=== PATIENT | male | born 1940 | race Caucasian/White ===

== ENCOUNTER → 2017-12-02 | Outpatient (CLI) | payer MEDICARE ==
[2017-12-02 13:22] LABS: CREATININE 0.98 mg/dL (0.70-1.30)
== END | disposition home or self-care (01) ==
LOC: LAB 12:51 → MRI 13:00 → LAB 13:00
PROVIDERS: Radiology Diagnostic Radiology
DX: G93.89 Other specified disorders of brain (principal); R41.82 Altered mental status, unspecified

== ENCOUNTER → 2018-06-29 | Outpatient (CLI) | payer MEDICARE | END | disposition home or self-care (01) | LOC: MRI 15:00 | DX: F03.90 Unspecified dementia, unspecified severity, without behavioral disturbance, psychotic disturbance, mood disturbance, and anxiety (principal) ==

== ENCOUNTER 2021-08-06 12:03 | Emergency (ER) | payer MEDICARE ==
[~2021-08-06] VITALS: Wt 77.1 kg
[2021-08-06 13:15] LABS: BASO % 0.4 % (0.0-1.0); EOS % 0.1 % (1.0-4.0); HEMATOCRIT 36.6 % (42.0-52.0); LYMPH # 1.8 10*3/uL (1.3-4.4); LYMPH % 17.7 % (27.0-41.0); MEAN CELL VOLUME 94.6 fl (80.0-94.0); MEAN CORPUSCULAR HGB 30.7 pg (27.0-31.0); MEAN CORPUSCULAR HGB CONC 32.5 g/dl (33.0-37.0); MEAN PLATELET VOLUME 10.3 fl (9.6-12.3); MONO # 0.9 10*3/uL (0.1-1.0); MONO % 8.9 % (3.0-9.0); NEUT # 7.5 10*3/uL (2.3-7.9); NEUT % 72.7 % (47.0-73.0); PLATELET COUNT AUTOMATED 186 10*3/uL (130-400); RED BLOOD COUNT 3.87 10*6/uL (4.50-5.90); RED CELL DISTRI WIDTH 13.6 % (0-14.5); WHITE BLOOD COUNT 10.3 10*3/uL (4.8-10.8)
[2021-08-06 13:36] LABS: ALKALINE PHOSPHATASE 89 U/L (45-117); BUN 32 mg/dl (7-24); CHLORIDE 106 mmol/L (98-107); CREATININE 1.36 mg/dL (0.70-1.30); POTASSIUM 4.3 mmol/L (3.5-5.1); SGOT/AST 24 IU/L (3-35); SGPT/ALT 18 U/L (12-78); SODIUM 142 mmol/L (136-145); TOTAL PROTEIN 6.3 gm/dL (6.4-8.2)
[2021-08-06] MEDS ORDERED: SEPTDS PO (16:34)
[2021-08-06] MEDS ORDERED: CEPHALEXIN500 M1 PO (16:34)
== END 2021-08-06 16:35 | disposition home or self-care (01) ==
LOC: ED 12:03
PROVIDERS: Physician Assistant
DX: S61.402A Unspecified open wound of left hand, initial encounter (principal); X58.XXXA Exposure to other specified factors, initial encounter; Y93.89 Activity, other specified; Y92.89 Other specified places as the place of occurrence of the external cause; Y99.8 Other external cause status

== ENCOUNTER → 2021-08-13 | Outpatient (CLI) | payer MEDICARE ==
[~2021-08-13] MED LIST: CEPHALEXIN500 M1 PO; SEPTDS PO
== END | disposition home or self-care (01) ==
LOC: WOUNDCARE 01:30
PROVIDERS: ATTEND Nurse Practitioner Family
DX: S61.402A Unspecified open wound of left hand, initial encounter (principal); F03.90 Unspecified dementia, unspecified severity, without behavioral disturbance, psychotic disturbance, mood disturbance, and anxiety; Z98.890 Other specified postprocedural states; Z79.899 Other long term (current) drug therapy; X58.XXXA Exposure to other specified factors, initial encounter; Y93.89 Activity, other specified; Y92.89 Other specified places as the place of occurrence of the external cause; Y99.8 Other external cause status

== ENCOUNTER → 2021-08-20 | Outpatient (CLI) | payer MEDICARE | END | disposition home or self-care (01) | LOC: WOUNDCARE 00:38 | PROVIDERS: ATTEND Nurse Practitioner Family | DX: S61.402D Unspecified open wound of left hand, subsequent encounter (principal); F03.90 Unspecified dementia, unspecified severity, without behavioral disturbance, psychotic disturbance, mood disturbance, and anxiety; X58.XXXD Exposure to other specified factors, subsequent encounter ==

== ENCOUNTER → 2021-08-27 | Outpatient (CLI) | payer MEDICARE | END | disposition home or self-care (01) | LOC: WOUNDCARE 02:54 | PROVIDERS: ATTEND Nurse Practitioner Family | DX: S61.402D Unspecified open wound of left hand, subsequent encounter (principal); F03.90 Unspecified dementia, unspecified severity, without behavioral disturbance, psychotic disturbance, mood disturbance, and anxiety; X58.XXXD Exposure to other specified factors, subsequent encounter ==

== ENCOUNTER → 2021-09-03 | Outpatient (CLI) | payer MEDICARE | END | disposition home or self-care (01) | LOC: WOUNDCARE 01:21 | PROVIDERS: ATTEND Nurse Practitioner Family | DX: S61.402D Unspecified open wound of left hand, subsequent encounter (principal); F03.90 Unspecified dementia, unspecified severity, without behavioral disturbance, psychotic disturbance, mood disturbance, and anxiety; X58.XXXD Exposure to other specified factors, subsequent encounter ==

== ENCOUNTER → 2021-09-10 | Outpatient (CLI) | payer MEDICARE | END | disposition home or self-care (01) | LOC: WOUNDCARE 00:59 | PROVIDERS: ATTEND Nurse Practitioner Family | DX: S61.402D Unspecified open wound of left hand, subsequent encounter (principal); F03.90 Unspecified dementia, unspecified severity, without behavioral disturbance, psychotic disturbance, mood disturbance, and anxiety; X58.XXXD Exposure to other specified factors, subsequent encounter ==

== ENCOUNTER → 2021-09-16 | Outpatient (CLI) | payer MEDICARE | END | disposition home or self-care (01) | LOC: WOUNDCARE 03:00 | PROVIDERS: ATTEND Nurse Practitioner Family | DX: S61.402D Unspecified open wound of left hand, subsequent encounter (principal); F03.90 Unspecified dementia, unspecified severity, without behavioral disturbance, psychotic disturbance, mood disturbance, and anxiety; X58.XXXD Exposure to other specified factors, subsequent encounter ==

== ENCOUNTER → 2021-10-01 | Outpatient (CLI) | payer MEDICARE | LOC: WOUNDCARE 02:22 | PROVIDERS: ATTEND Nurse Practitioner Family | DX: Z53.21 Procedure and treatment not carried out due to patient leaving prior to being seen by health care provider (principal) ==

== ENCOUNTER → 2021-10-02 | Outpatient (CLI) | payer MEDICARE | END | disposition home or self-care (01) | LOC: WOUNDCARE 00:25 | PROVIDERS: ATTEND Nurse Practitioner Family | DX: S61.402D Unspecified open wound of left hand, subsequent encounter (principal); F03.90 Unspecified dementia, unspecified severity, without behavioral disturbance, psychotic disturbance, mood disturbance, and anxiety; X58.XXXD Exposure to other specified factors, subsequent encounter ==

== ENCOUNTER → 2021-10-22 | Outpatient (CLI) | payer MEDICARE | END | disposition home or self-care (01) | LOC: WOUNDCARE 02:13 | PROVIDERS: ATTEND Nurse Practitioner Family | DX: S61.402D Unspecified open wound of left hand, subsequent encounter (principal); F03.90 Unspecified dementia, unspecified severity, without behavioral disturbance, psychotic disturbance, mood disturbance, and anxiety; X58.XXXD Exposure to other specified factors, subsequent encounter ==

== ENCOUNTER → 2023-03-22 | Outpatient (CLI) | payer MEDICARE ==
[2023-03-22 10:18] LABS: BASO % 0.3 % (0.0-1.0); EOS # 0.1 10*3/uL (0.0-0.4); EOS % 2.4 % (1.0-4.0); HEMATOCRIT 49.6 % (42.0-52.0); LYMPH # 2.1 10*3/uL (1.3-4.4); LYMPH % 35.9 % (27.0-41.0); MEAN CELL VOLUME 96.9 fl (80.0-94.0); MEAN CORPUSCULAR HGB 31.4 pg (27.0-31.0); MEAN CORPUSCULAR HGB CONC 32.5 g/dl (33.0-37.0); MEAN PLATELET VOLUME 10.4 fl (9.6-12.3); MONO # 0.6 10*3/uL (0.1-1.0); NEUT % 51.4 % (47.0-73.0); PLATELET COUNT AUTOMATED 200 10*3/uL (130-400); RED BLOOD COUNT 5.12 10*6/uL (4.50-5.90); RED CELL DISTRI WIDTH 12.9 % (0-14.5); WHITE BLOOD COUNT 5.8 10*3/uL (4.8-10.8)
[2023-03-22 10:40] LABS: ALKALINE PHOSPHATASE 108 U/L (46-116); BUN 9 mg/dl (9-23); CHLORIDE 104 mmol/L (98-107); SGPT/ALT 16 U/L (5-49)
[2023-03-22 14:48] LABS: BILIRUBIN Negative (Negative); BLOOD Negative (Negative); CLARITY Clear (Clear); COLOR Yellow (Yellow); GLUCOSE Negative (Negative); KETONE Negative (Negative); LEUKO ESTERASE Negative (Negative); NITRITE Negative (Negative); PH 5.5 (4.5-8.0)
[2023-03-22 15:03] LABS: BACTERIA 1+; MUCOUS 3+
== END | disposition home or self-care (01) ==
LOC: LAB 09:44
PROVIDERS: ATTEND Internal Medicine Nephrology
DX: N18.30 Chronic kidney disease, stage 3 unspecified (principal)

== ENCOUNTER 2024-06-05 15:31 | Emergency (ER) | payer MEDICARE ==
[~2024-06-05] VITALS: Ht 177.8 cm; Wt 78.0 kg
[2024-06-05 16:02] LABS: BASO % 0.3 % (0.0-1.0); EOS # 0.1 10*3/uL (0.0-0.4); EOS % 1.6 % (1.0-4.0); HEMATOCRIT 43.7 % (42.0-52.0); MEAN CELL VOLUME 93.6 fl (80.0-94.0); MEAN CORPUSCULAR HGB 31.3 pg (27.0-31.0); MEAN CORPUSCULAR HGB CONC 33.4 g/dl (33.0-37.0); MEAN PLATELET VOLUME 9.7 fl (9.6-12.3); MONO # 0.7 10*3/uL (0.1-1.0); NEUT # 4.9 10*3/uL (2.3-7.9); NEUT % 66.6 % (47.0-73.0); PLATELET COUNT AUTOMATED 210 10*3/uL (130-400); RED BLOOD COUNT 4.67 10*6/uL (4.50-5.90); WHITE BLOOD COUNT 7.3 10*3/uL (4.8-10.8)
[2024-06-05 16:21] LABS: BUN 13 mg/dl (9-23); CHLORIDE 104 mmol/L (98-107); POTASSIUM 4.1 mmol/L (3.4-5.1)
[2024-06-05 16:25] LABS: ETHYL ALCOHOL < 3.0 mg/dl (<3)
[2024-06-05] MEDS ORDERED: hydrOXYzine pamoate 25 MG CAP PO ONE (17:05)
[2024-06-05 19:23] LABS: BILIRUBIN Negative (Negative); BLOOD 3+ (Negative); CLARITY Cloudy (Clear); COLOR Orange (Yellow); GLUCOSE Negative (Negative); KETONE 1+ (Negative); LEUKO ESTERASE Trace (Negative); NITRITE Negative (Negative); UROBILINOGEN 0.2 E.U./dl (0.0-1.0)
[2024-06-05 19:34] LABS: BACTERIA 1+; RBC TNTC rbc/hpf (0-2)
[2024-06-05 19:35] LABS: MUCOUS 2+
[2024-06-05 19:37] LABS: URINE AMPHETAMINES Negative (1000ng/ml); URINE BARBITURATES Negative (200ng/ml); URINE BENZODIAZEPINES Negative (200ng/ml); URINE CANNABINOIDS (THC) Negative (50ng/ml); URINE COCAINE Negative (300ng/ml); URINE METHADONE Negative (300ng/ml); URINE OPIATES Negative (300ng/ml); URINE PHENCYCLIDINE Negative (25ng/ml)
[2024-06-06] MEDS ORDERED: VITAMIN B1250 MCG PO (11:02)
[2024-06-06] MEDS ORDERED: NAMENDA-5 PO (11:02)
[2024-06-06] MEDS ORDERED: ROSUVASTATIN CAL5 MG PO (11:03)
[2024-06-06] MEDS ORDERED: AMIODARONE HYD200 MG PO (11:03)
[2024-06-06] MEDS ORDERED: METHOCARBAMOL500 M1 PO (11:04)
[2024-06-06] MEDS ORDERED: ELIQUIS5 M1 PO (11:04)
[2024-06-06] MEDS ORDERED: Lopressor25 MG PO (11:04)
[2024-06-06] MEDS ORDERED: SYNTHROID,LEVO75 MCG PO (11:06)
[2024-06-06] MEDS ORDERED: ZOLOFT25 MG PO (11:07)
[2024-06-06] MEDS ORDERED: VITAMIN D31250 MC1 PO (11:16)
== END 2024-06-05 21:56 ==
LOC: ED 15:31
PROVIDERS: Physician Assistant Medical
DX: F03.918 Unspecified dementia, unspecified severity, with other behavioral disturbance (principal); Z79.899 Other long term (current) drug therapy

== ENCOUNTER 2024-06-05 17:50 | Inpatient (IN) | payer MEDICARE ==
[~2024-06-05] VITALS: Ht 180.3 cm; Wt 76.2 kg
[2024-06-05] MEDS ORDERED: hydrOXYzine hydrochloride 50 MG/ML VIAL IM PRN (18:10)
[2024-06-05] MEDS ORDERED: LORazepam 1 MG TAB PO PRN ×2 (18:10→23:25)
[2024-06-05] MEDS ORDERED: Ziprasidone Mesylate 20 MG VIAL IM PRN ×2 (18:10→23:30)
[2024-06-05 22:06] VITALS: BP 140/86
[2024-06-05] MEDS ORDERED: Magnesium Hydroxide 30 ML UDC PO PRN (23:30)
[2024-06-05] MEDS ORDERED: MG-AL HYDROXIDE/SIMETICONE 30 ML UDC PO PRN (23:30)
[2024-06-05] MEDS ORDERED: Water, Sterile 10 ML VIAL IM PRN (23:30)
[2024-06-05] MEDS ORDERED: ACETAMINOPHEN 325 MG TAB PO PRN (23:30)
[2024-06-06 06:25] LABS: BASO % 0.4 % (0.0-1.0); EOS # 0.2 10*3/uL (0.0-0.4); EOS % 4.2 % (1.0-4.0); HEMATOCRIT 42.7 % (42.0-52.0); MEAN CORPUSCULAR HGB 30.5 pg (27.0-31.0); MEAN CORPUSCULAR HGB CONC 32.8 g/dl (33.0-37.0); MEAN PLATELET VOLUME 9.9 fl (9.6-12.3); MONO # 0.7 10*3/uL (0.1-1.0); MONO % 13.4 % (3.0-9.0); PLATELET COUNT AUTOMATED 184 10*3/uL (130-400); RED BLOOD COUNT 4.59 10*6/uL (4.50-5.90); RED CELL DISTRI WIDTH 13.1 % (0-14.5); WHITE BLOOD COUNT 5.2 10*3/uL (4.8-10.8)
[2024-06-06 06:51] LABS: CHOLESTEROL 154 mg/dL (<200); LDL CHOLESTEROL 95 mg/dL (9-159); TRIGLYCERIDES 100 mg/dl (<150)
[2024-06-06 07:18] LABS: ALKALINE PHOSPHATASE 106 U/L (46-116); BUN 13 mg/dl (9-23); CHLORIDE 103 mmol/L (98-107); POTASSIUM 3.7 mmol/L (3.4-5.1); SGPT/ALT 15 U/L (5-49)
[2024-06-06 07:23] LABS: VITAMIN D, 25-HYDROXY 128.2 ng/mL (30-100)
[2024-06-06 08:00] VITALS: BP 95/82
[2024-06-06] MEDS ORDERED: DIVALPROEX SODIUM 125 MG CAP PO SCH (09:00)
[2024-06-06] MEDS ORDERED: Rivastigmine Tartrate 4.6 MG/24 HR PATCH T SCH ×2 (09:00)
[2024-06-06] MEDS ORDERED: risperiDONE 0.5 MG ODT BC SCH (09:00)
[2024-06-06] MEDS ORDERED: Menthol/Zinc Oxide 4 GM THIN T SCH (09:00)
[2024-06-06] MEDS ORDERED: VITAMIN B1250 MCG PO (11:02)
[2024-06-06] MEDS ORDERED: NAMENDA-5 PO (11:02)
[2024-06-06] MEDS ORDERED: AMIODARONE HYD200 MG PO (11:03)
[2024-06-06] MEDS ORDERED: ROSUVASTATIN CAL5 MG PO (11:03)
[2024-06-06] MEDS ORDERED: ELIQUIS5 M1 PO (11:04)
[2024-06-06] MEDS ORDERED: METHOCARBAMOL500 M1 PO (11:04)
[2024-06-06] MEDS ORDERED: Lopressor25 MG PO (11:04)
[2024-06-06] MEDS ORDERED: SYNTHROID,LEVO75 MCG PO (11:06)
[2024-06-06] MEDS ORDERED: ZOLOFT25 MG PO (11:07)
[2024-06-06] MEDS ORDERED: VITAMIN D31250 MC1 PO (11:16)
[2024-06-06 20:00] VITALS: BP 116/68
[2024-06-06] MEDS ORDERED: APIXABAN 5 MG TAB PO SCH (21:00)
[2024-06-06] MEDS ORDERED: Memantine Hydrochloride 5 MG TAB PO SCH (21:00)
[2024-06-06] MEDS ORDERED: Rosuvastatin Calcium 10 MG TABLET PO SCH (22:00)
[2024-06-07] MEDS ORDERED: Levothyroxine Sodium 75 MCG TAB PO SCH (06:00)
[2024-06-07 08:11] VITALS: BP 120/66
[2024-06-07] MEDS ORDERED: Amiodarone Hydrochloride 200 MG TAB PO SCH (09:00)
[2024-06-07] MEDS ORDERED: ARIPiprazole 5 MG TAB PO SCH (12:50)
[2024-06-07 20:00] VITALS: BP 131/70
[2024-06-07] MEDS ORDERED: DIVALPROEX SODIUM 125 MG CAP PO SCH (21:00)
[2024-06-07] MEDS ORDERED: Rosuvastatin Calcium 10 MG TABLET PO SCH (22:00)
[2024-06-08 08:00] VITALS: BP 126/51
[2024-06-08] MEDS ORDERED: Rivastigmine Tartrate 9.5 MG/24 HR PATCH T SCH (09:00)
[2024-06-08 20:00] VITALS: BP 150/69
[2024-06-08] MEDS ORDERED: Memantine Hydrochloride 10 MG TAB PO SCH (21:00)
[2024-06-09 08:00] VITALS: BP 109/60
[2024-06-09 20:00] VITALS: BP 124/62
[2024-06-10 08:00] VITALS: BP 128/57
[2024-06-10] MEDS ORDERED: Menthol/Zinc Oxide 4 GM THIN T PRN (09:58)
[2024-06-10 20:00] VITALS: BP 124/55
[2024-06-11 08:00] VITALS: BP 101/44
[2024-06-11 08:02] LABS: BASO # 0.1 10*3/uL (0.0-0.1); EOS # 0.5 10*3/uL (0.0-0.4); HEMATOCRIT 36.4 % (42.0-52.0); MEAN CELL VOLUME 95.8 fl (80.0-94.0); MEAN CORPUSCULAR HGB 31.1 pg (27.0-31.0); MEAN CORPUSCULAR HGB CONC 32.4 g/dl (33.0-37.0); MEAN PLATELET VOLUME 11.3 fl (9.6-12.3); MONO # 0.6 10*3/uL (0.1-1.0); MONO % 11.4 % (3.0-9.0); NEUT # 2.6 10*3/uL (2.3-7.9); PLATELET COUNT AUTOMATED 158 10*3/uL (130-400); RED CELL DISTRI WIDTH 12.6 % (0-14.5); WHITE BLOOD COUNT 5.1 10*3/uL (4.8-10.8)
[2024-06-11 08:26] LABS: ALKALINE PHOSPHATASE 69 U/L (46-116); BUN 17 mg/dl (9-23); CHLORIDE 107 mmol/L (98-107); SGPT/ALT 17 U/L (5-49); TOTAL PROTEIN 5.6 gm/dL (6.0-8.0)
[2024-06-11] MEDS ORDERED: RIVASTIGMINE 13.3 MG/24 HR TDM T SCH (09:00)
[2024-06-11 20:00] VITALS: BP 106/63
[2024-06-12 08:00] VITALS: BP 110/59
[2024-06-12 20:00] VITALS: BP 128/61
[2024-06-13 08:00] VITALS: BP 99/58
[2024-06-13 20:00] VITALS: BP 111/68
[2024-06-14 08:16] VITALS: BP 107/59
[2024-06-14 20:00] VITALS: BP 103/66
[2024-06-15 08:21] VITALS: BP 131/76
[2024-06-15] MEDS ORDERED: RIVASTIGMINE1 EAC2 T (09:36)
[2024-06-15] MEDS ORDERED: DIVALPROEX SOD125 M1 PO (09:36)
[2024-06-15] MEDS ORDERED: MEMANTINE HCL10 MG PO (09:36)
[2024-06-15] MEDS ORDERED: ARIPIPRAZOLE5 MG PO (09:36)
== END 2024-06-15 16:04 | disposition home or self-care (01) | DRG 885 ==
LOC: 3N 17:50
PROVIDERS: Nurse Practitioner; ADMIT Psychiatry & Neurology Psychiatry; ATTEND Psychiatry & Neurology Psychiatry
PROC: GZHZZZZ Group Psychotherapy (ICD-10-PCS; principal; 2024-06-06)
PROC: GZ56ZZZ Individual Psychotherapy, Supportive (ICD-10-PCS; 2024-06-06)
DX: F31.9 Bipolar disorder, unspecified (principal); F02.818 Dementia in other diseases classified elsewhere, unspecified severity, with other behavioral disturbance; F02.84 Dementia in other diseases classified elsewhere, unspecified severity, with anxiety; F02.82 Dementia in other diseases classified elsewhere, unspecified severity, with psychotic disturbance; R31.9 Hematuria, unspecified; M15.0 Primary generalized (osteo)arthritis; G30.9 Alzheimer's disease, unspecified; F63.81 Intermittent explosive disorder; R82.71 Bacteriuria; Z90.49 Acquired absence of other specified parts of digestive tract; Z87.891 Personal history of nicotine dependence; Z82.5 Family history of asthma and other chronic lower respiratory diseases; Z82.49 Family history of ischemic heart disease and other diseases of the circulatory system; Z79.899 Other long term (current) drug therapy; Z79.01 Long term (current) use of anticoagulants; Z79.2 Long term (current) use of antibiotics

== ENCOUNTER 2025-01-26 15:59 | Inpatient (IN) | payer MEDICARE ==
[~2025-01-26] VITALS: Ht 182.8 cm; Wt 79.0 kg
[~2025-01-26 15:59] MED LIST changes: +AMIODARONE HYD200 MG PO; +ARIPIPRAZOLE5 MG PO; +DIVALPROEX SOD125 M1 PO; +ELIQUIS5 M1 PO; +LASIX40 MG PO; +Lopressor25 MG PO; +MEMANTINE HCL10 MG PO; +METHOCARBAMOL500 M1 PO; +NAMENDA-5 PO; +POTASSIUM CHLO10 ME4 PO; +POTASSIUM CHLO10 ME5 PO; +RIVASTIGMINE1 EAC2 T; +ROSUVASTATIN CAL5 MG PO; +SYNTHROID,LEVO75 MCG PO; +VITAMIN B1250 MCG PO; +VITAMIN D31250 MC1 PO; +ZOLOFT25 MG PO
[2025-01-26 16:04] VITALS: BP 147/82
[2025-01-26] MEDS ORDERED: SODIUM CHLORIDE 0.9% 1,000 ML IV ONE (17:20)
[2025-01-26 18:01] LABS: BASO # 0.0 10*3/uL (0.0-0.1); BASO % 0.2 % (0.0-1.0); EOS # 0.0 10*3/uL (0.0-0.4); EOS % 0.3 % (1.0-4.0); MEAN CELL VOLUME 91.8 fl (80.0-94.0); MEAN CORPUSCULAR HGB 30.2 pg (27.0-31.0); MEAN PLATELET VOLUME 9.8 fl (9.6-12.3); MONO # 1.0 10*3/uL (0.1-1.0); MONO % 16.8 % (3.0-9.0); NEUT # 4.0 10*3/uL (2.3-7.9); NEUT % 68.6 % (47.0-73.0); NUCLEATED RED BLOOD CELL 0.0 % (0.0-0.0); NUCLEATED RED BLOOD CELL 0.0 10*3/uL (0.0-0.0); PLATELET COUNT AUTOMATED 155 10*3/uL (130-400); RED CELL DISTRI WIDTH 15.7 % (0-14.5)
[2025-01-26 18:25] LABS: BUN 15 mg/dl (9-23); CPK 55 U/L (34-171); SGPT/ALT 13 U/L (5-49)
[2025-01-26 19:28] VITALS: BP 156/108
[2025-01-26 20:53] VITALS: BP 128/83
[2025-01-26] MEDS ORDERED: ACETAMINOPHEN 325 MG TAB PO ONE (21:00)
[2025-01-26 21:02] LABS: BILIRUBIN Negative (Negative); BLOOD Trace-Lysed (Negative); CLARITY Clear (Clear); COLOR Yellow (Yellow); KETONE 2+ (Negative); LEUKO ESTERASE Negative (Negative); NITRITE Negative (Negative); PH 6.5 (4.5-8.0); SPECIFIC GRAVITY 1.020 (1.001-1.030); UROBILINOGEN 1.0 E.U./dl (0.0-1.0)
[2025-01-26 21:10] LABS: MUCOUS 1+; WBC 0-2 wbc/hpf (0-5)
[2025-01-26] MEDS ORDERED: REMDESIVIR 200 MG in SODIUM CHLORIDE 0.9% 210 ML IV ONE (21:15)
[2025-01-26] MEDS ORDERED: BISACODYL 10 MG SUPP R PRN (21:55)
[2025-01-26] MEDS ORDERED: ACETAMINOPHEN 650 MG SUPP R PRN (21:55)
[2025-01-26] MEDS ORDERED: ACETAMINOPHEN 325 MG TAB PO PRN (21:55)
[2025-01-26] MEDS ORDERED: BISACODYL 5 MG TAB PO PRN (21:55)
[2025-01-26] MEDS ORDERED: Ondansetron Hydrochloride 4 MG/2 ML VIAL IV PRN (21:55)
[2025-01-26] MEDS ORDERED: DIVALPROEX SOD125 MG PO (22:02)
[2025-01-26] MEDS ORDERED: METHOCARBAMOL500 M1 PO (22:04)
[2025-01-26] MEDS ORDERED: MEMANTINE HCL10 MG PO (22:04)
[2025-01-26] MEDS ORDERED: ELIQUIS5 M1 PO (22:04)
[2025-01-26] MEDS ORDERED: LEVOXYL75 MCG PO (22:05)
[2025-01-26] MEDS ORDERED: ROSUVASTATIN CAL5 MG PO (22:05)
[2025-01-26] MEDS ORDERED: ABILIFY5 MG PO (22:07)
[2025-01-26] MEDS ORDERED: VITAMIN B121000 MC1 PO (22:07)
[2025-01-26] MEDS ORDERED: VITAMIN D210 MCG PO (22:07)
[2025-01-26] MEDS ORDERED: TOPROL XL25 MG PO (22:07)
[2025-01-26 23:44] VITALS: BP 93/67
[2025-01-27 01:00] VITALS: BP 127/86
[2025-01-27 04:00] VITALS: BP 131/67
[2025-01-27 06:11] LABS: BUN 14 mg/dl (9-23); SGPT/ALT 13 U/L (5-49)
[2025-01-27 07:47] LABS: BASO # 0.0 10*3/uL (0.0-0.1); BASO % 0.1 % (0.0-1.0); EOS # 0.0 10*3/uL (0.0-0.4); EOS % 0.0 % (1.0-4.0); MEAN CELL VOLUME 89.5 fl (80.0-94.0); MEAN CORPUSCULAR HGB 28.7 pg (27.0-31.0); MEAN PLATELET VOLUME 10.1 fl (9.6-12.3); MONO # 1.0 10*3/uL (0.1-1.0); MONO % 13.6 % (3.0-9.0); NEUT # 5.1 10*3/uL (2.3-7.9); NEUT % 69.8 % (47.0-73.0); NUCLEATED RED BLOOD CELL 0.0 % (0.0-0.0); NUCLEATED RED BLOOD CELL 0.0 10*3/uL (0.0-0.0); PLATELET COUNT AUTOMATED 138 10*3/uL (130-400); RED CELL DISTRI WIDTH 16.4 % (0-14.5)
[2025-01-27 08:00] VITALS: BP 134/93
[2025-01-27] MEDS ORDERED: APIXABAN 5 MG TAB PO SCH (10:45)
[2025-01-27] MEDS ORDERED: ATORVASTATIN CALCIUM 20 MG TAB PO SCH (10:45)
[2025-01-27] MEDS ORDERED: DIVALPROEX SODIUM 125 MG TAB PO SCH (10:45)
[2025-01-27] MEDS ORDERED: ARIPiprazole 5 MG TAB PO SCH (10:45)
[2025-01-27] MEDS ORDERED: METOPROLOL SUCCINATE XR 25 MG TAB PO SCH (10:46)
[2025-01-27 12:00] VITALS: BP 142/81
[2025-01-27 16:00] VITALS: BP 109/96
[2025-01-27 20:00] VITALS: BP 120/70
[2025-01-27] MEDS ORDERED: REMDESIVIR 100 MG in SODIUM CHLORIDE 0.9% 230 ML IV SCH (20:00)
[2025-01-28] VITALS: BP 121/74
[2025-01-28 05:41] LABS: BUN 21 mg/dl (9-23)
[2025-01-28 06:09] LABS: BASO # 0.0 10*3/uL (0.0-0.1); BASO % 0.1 % (0.0-1.0); EOS # 0.0 10*3/uL (0.0-0.4); EOS % 0.0 % (1.0-4.0); MEAN CELL VOLUME 91.5 fl (80.0-94.0); MEAN CORPUSCULAR HGB 29.7 pg (27.0-31.0); MEAN PLATELET VOLUME 10.7 fl (9.6-12.3); MONO # 0.4 10*3/uL (0.1-1.0); MONO % 4.4 % (3.0-9.0); NEUT # 6.7 10*3/uL (2.3-7.9); NEUT % 82.7 % (47.0-73.0); NUCLEATED RED BLOOD CELL 0.0 % (0.0-0.0); NUCLEATED RED BLOOD CELL 0.0 10*3/uL (0.0-0.0); PLATELET COUNT AUTOMATED 133 10*3/uL (130-400); RED CELL DISTRI WIDTH 15.9 % (0-14.5)
[2025-01-28 08:00] VITALS: BP 129/40
[2025-01-28 12:00] VITALS: BP 129/40; BP 98/52
[2025-01-28 16:00] VITALS: BP 103/60; BP 125/60
[2025-01-28 20:00] VITALS: BP 107/75
[2025-01-29] VITALS: BP 110/78
[2025-01-29 06:21] LABS: BUN 23 mg/dl (9-23)
[2025-01-29 06:44] LABS: BASO # 0.0 10*3/uL (0.0-0.1); BASO % 0.1 % (0.0-1.0); EOS # 0.0 10*3/uL (0.0-0.4); EOS % 0.0 % (1.0-4.0); MEAN CELL VOLUME 90.8 fl (80.0-94.0); MEAN CORPUSCULAR HGB 29.8 pg (27.0-31.0); MEAN PLATELET VOLUME 10.9 fl (9.6-12.3); MONO # 0.3 10*3/uL (0.1-1.0); MONO % 3.3 % (3.0-9.0); NEUT # 7.1 10*3/uL (2.3-7.9); NEUT % 84.4 % (47.0-73.0); NUCLEATED RED BLOOD CELL 0.0 % (0.0-0.0); NUCLEATED RED BLOOD CELL 0.0 10*3/uL (0.0-0.0); PLATELET COUNT AUTOMATED 151 10*3/uL (130-400); RED CELL DISTRI WIDTH 15.9 % (0-14.5)
[2025-01-29 08:00] VITALS: BP 115/83
[2025-01-29] MEDS ORDERED: DEXAMETHASONE6 MG PO (09:52)
== END 2025-01-29 11:54 | disposition home or self-care (01) | DRG 871 ==
LOC: ED 15:59 → 5E 21:20 → EDHOLD 21:20 → 4E 22:21 → EDHOLD 22:56 → 5E 23:37
PROVIDERS: Emergency Medicine; Student in an Organized Health Care Education/Training Program; ADMIT Internal Medicine; ATTEND Internal Medicine
PROC: XW033E5 Introduction of Remdesivir Anti-infective into Peripheral Vein, Percutaneous Approach, New Technology Group 5 (ICD-10-PCS; principal; 2025-01-27)
DX: A41.89 Other specified sepsis (principal); G93.41 Metabolic encephalopathy; U07.1 COVID-19; I48.19 Other persistent atrial fibrillation; J91.8 Pleural effusion in other conditions classified elsewhere; E03.9 Hypothyroidism, unspecified; E78.5 Hyperlipidemia, unspecified; R65.20 Severe sepsis without septic shock; G30.9 Alzheimer's disease, unspecified; F02.80 Dementia in other diseases classified elsewhere, unspecified severity, without behavioral disturbance, psychotic disturbance, mood disturbance, and anxiety; Z79.899 Other long term (current) drug therapy; Z79.01 Long term (current) use of anticoagulants; Z79.2 Long term (current) use of antibiotics; Z90.49 Acquired absence of other specified parts of digestive tract; Z87.891 Personal history of nicotine dependence; Z82.5 Family history of asthma and other chronic lower respiratory diseases; Z80.8 Family history of malignant neoplasm of other organs or systems